=== PATIENT | male | born 2000 | race Two or more races ===

== ENCOUNTER 2024-03-28 13:49 | Emergency (ER) | payer OTHER ==
[2024-03-28] MEDS ORDERED: Lidocaine 1% 20 ML MDV INFILT ONE (13:50)
[2024-03-28] MEDS: cefTRIAXone 500 MG Vial IM ONE (15:46)
== END 2024-03-28 16:23 | disposition home or self-care (01) ==
LOC: FB.ED 13:49
DX: S68.115A Complete traumatic metacarpophalangeal amputation of left ring finger, initial encounter (principal); X58.XXXA Exposure to other specified factors, initial encounter
CPT/HCPCS: 12002; 36415; 80320; 96372; 99000; 99283; 99284; J0696; G0480